=== PATIENT | male | born 1985 | race Two or more races ===

== ENCOUNTER 2018-05-09 23:09 | Inpatient (IN) | payer SELFPAY ==
[~2018-05-09] VITALS: Ht 170.2 cm; Wt 92.5 kg
[2018-05-10 05:20] LABS: BASOPHIL % 0.6 % (0-2); PLATELET COUNT 303 x10^3mcL (130-400); RED CELL DISTRIBUTION WIDTH 15.2 % (11.5-14.5)
[2018-05-10 05:27] LABS: CHLORIDE SERUM 102 mmol/L (98-107); CREATININE SERUM 1.1 mg/dL (0.7-1.3); GFR1 > 60 mL/min; GLUCOSE SERUM 117 mg/dL (74-106); POTASSIUM SERUM 4.1 mmol/L (3.5-5.1); SODIUM SERUM 143 mmol/L (136-145)
[2018-05-10 05:33] LABS: ALBUMIN 4.4 g/dL (3.4-5.0); ALKALINE PHOSPHATASE 76 U/L (46-116); ALT/SGPT 36 U/L (16-63); AST/SGOT 19 U/L (15-37); BILIRUBIN TOTAL 1.23 mg/dL (0.20-1.00); LIPASE 104 IU/L (73-393)
[2018-05-10 05:35] LABS: TOTAL PROTEIN, SERUM 8.7 g/dL (6.4-8.2)
[2018-05-10 08:05] LABS: UA SPECIFIC GRAVITY >=1.030 (1.005-1.035); microscopic required? YES; urine erythrocyte TRACE (NEGATIVE)
[2018-05-10 08:15] LABS: AMPHETAMINE QUAL UR NONE DETECTED (See below)
[2018-05-10 10:12] LABS: CHOLESTEROL/HDL RATIO 2.5; MAGNESIUM 2.3 mg/dL (1.8-2.4)
[2018-05-10 11:15] VITALS: BP 121/71
[2018-05-10 14:30] VITALS: BP 121/77
[2018-05-10 21:12] VITALS: BP 123/65
[2018-05-11 05:38] VITALS: BP 109/72
[2018-05-11 07:22] LABS: BASOPHIL % 0.5 % (0-2); PLATELET COUNT 243 x10^3mcL (130-400)
[2018-05-11 07:25] LABS: CALCIUM 8.4 mg/dL (8.5-10.1); CARBON DIOXIDE 25.7 mmol/L (21-32); CHLORIDE SERUM 108 mmol/L (98-107); CREATININE SERUM 0.8 mg/dL (0.7-1.3); GFR1 > 60 mL/min; GLUCOSE SERUM 90 mg/dL (74-106); MAGNESIUM 2.3 mg/dL (1.8-2.4); PHOSPHOROUS 3.4 mg/dL (2.5-4.9); POTASSIUM SERUM 3.6 mmol/L (3.5-5.1); RED CELL DISTRIBUTION WIDTH 15.3 % (11.5-14.5); SODIUM SERUM 143 mmol/L (136-145)
[2018-05-11 08:00] VITALS: BP 130/71
[2018-05-11 14:24] VITALS: Ht 170.2 cm; Wt 92.5 kg
[2018-05-11 17:00] VITALS: BP 130/71
== END 2018-05-11 17:17 | disposition home or self-care (01) | DRG 551 ==
LOC: ED 23:09 → MU 05-10 08:06
PROVIDERS: Emergency Medicine; ADMIT Family Medicine
DX: M54.9 Dorsalgia, unspecified (principal); G93.41 Metabolic encephalopathy; E87.2 Acidosis; R65.10 Systemic inflammatory response syndrome (SIRS) of non-infectious origin without acute organ dysfunction; E11.65 Type 2 diabetes mellitus with hyperglycemia; E83.51 Hypocalcemia; W18.39XA Other fall on same level, initial encounter; Y93.89 Activity, other specified; Y92.89 Other specified places as the place of occurrence of the external cause; Y99.8 Other external cause status
CPT/HCPCS: 82962; 83880; 87804; G0480; J1630; J2060; J7030; Q0092